=== PATIENT | female | born 1945 | race Caucasian/White ===

== ENCOUNTER 2025-03-18 17:48 | Emergency (ER) | payer MEDICARE, OTHER, SELFPAY ==
[2025-03-18 18:03] VITALS: BP 117/92
[2025-03-18 18:22] VITALS: BMI 24.2
--- NOTE | 2025-03-18 20:43 | ED.GENMED ---
History of Present Illness
General
Chief Complaint: Fall
Source: patient
Time Seen by Provider: 03/18/25 19:23
History of Present Illness
History of Present Illness:
Psychiatric sign NC 79-year-old female with past medical history of bronchiectasis, IBS and anxiety presenting to the emergency department for evaluation after she accidentally increased the speed too much on the treadmill and prior to being able to
slow the treadmill down or get off the treadmill she fell down onto the moving treadmill. Patient sustained abrasion to her chin, bilateral knee, bilateral forearm and states she bit the inner aspect of her lower lip. Patient unsure of her last
tetanus. she denies any headache, visual changes, loss consciousness, use of anticoagulants. No other injury sustained. Patient currently stating her right knee is what is bothering her the most and notes some mild soft tissue swelling
Past History
Past History
ED Past Medical History: Psychiatric (anxiety), Other (Bronchiectasis) and Other (IBS)
ED Past Surgical History: Orthopedic (Knee replacement surgery)
Social History
Tobacco: Former smoker
Alcohol: None
Drug: None
Personal:
Living: with family
Review of Systems
Review of Systems
All Other Systems: ROS reviewed and negative except as documented in HPI and ROS
Phy Exam
Physical Exam
Physical Exam:
GENERAL: Alert , in no apparent distress
HEAD: abrasion/contusion to chin
EYE: Clear conjunctiva
NECK: Supple, no midline tenderness
ENT: o/p clr, mmm.
NEUROLOGICAL: Alert and oriented, no focal neuro deficits
SKIN: Warm and dry, superficial abrasions to the chin, bilateral forearms, bilateral knees and left lower leg
MUSCULOSKELETAL: No edema, well perfused. Right knee: Mild soft tissue swelling but patient allows for full active and passive range of motion. Tenderness over the patella
PSYCH: Normal and appropriate interaction.
Scores
Heart Failure Risk
Heart Failure Risk Score: Not Applicable
Heart Score for Chest Pain Patients
STEMI patient?: Not applicable
Withdrawal Assessment of Alcohol
Withdrawal Assessment Completed?: Not applicable
Course
Orders/Labs/Results
Orders:
Orders
03/18/25 20:27
CR Knee- Right 4 Or More View* Urgent
Comment:
Reason For Exam: pain, fall, edema
03/18/25 20:45
Tetanus/Diphth/Acelpertussis [Adacel] 0.5 ml IM .ONCE ONE
Vital Signs
Initial and Last Documented VS:
Initial Vital Signs
Temp Pulse Resp BP Pulse Ox
98.3 F 70 16 117/92 98
03/18/25 18:03 03/18/25 18:03 03/18/25 18:03 03/18/25 18:03 03/18/25 18:03
Last Documented Vital Signs
Temp Pulse Resp BP Pulse Ox
98.3 F 70 16 117/92 98
03/18/25 18:03 03/18/25 18:03 03/18/25 18:03 03/18/25 18:03 03/18/25 18:03
MDM/Problems Addressed
Differential Diagnosis Includes:
Superficial abrasion/contusion, minimal concern for fracture or ligamentous/meniscal injury
MDM/Problems Addressed:
79-year-old female presenting the ER for evaluation after she had neck central fall on a treadmill when she excellently set the treadmill speed too fast. Multiple superficial abrasions/contusions noted. Patient's main concern is her right knee.
Will obtain x-ray however I suspect soft tissue contusion/potential small joint effusion likely. Patient declining anything further for pain at this time. Ice and elevation and continued NSAIDs/Tylenol as needed for pain. Anticipate discharge
home.
*Radiology
Radiology exam reviewed: preliminary read by ED provider (Soft tissue swelling, no fracture or hardware fracture)
*Pulse Oximetry
Patient hypoxic: no
*Critical Care Note
Total Time (30-74mins, 75-104mins- exclusive of procedures): Not Applicable
Patient Management
Escalation/DeEscalation of care consider admission/obs:
X-ray unremarkable. Patient feels comfortable being discharged home. NSAIDs/Tylenol as needed for pain. She is otherwise stable for discharge home.
ED Attending Note
-
Portions of this chart may have been created with voice recognition software.� Occasional wrong word or��sound alike� substitutions may have occurred due to the inherent limitations of voice recognition software.
Discharge Plan
Departure
Patient Disposition: Home (Routine Discharge)
Date of Disposition: 03/18/25
Time of Disposition: 21:02
Patient with high blood pressure during this ER visit?: No
Discharge Problem:
Accidental fall, Chin contusion, Abrasions of multiple sites
Instructions: Skin Abrasions (DC)
Prescriptions:
No Action
meloxicam 7.5 MG tablet
7.5 mg PO QPM
escitalopram oxalate 10 MG tablet
10 mg PO HS
fluticasone furoate-vilanterol [Breo Ellipta] 1 EACH blister with device
1 puff inhalation R DAILY
ammonium lactate 1 APPLIC lotion
1 applic TP DAILY
calcium carbonate [Oyster Shell Calcium 500] 500 MG tablet
500 mg PO BID
Patient Comments:
pt states that she thinks she takes 600 mg q BID
ascorbic acid (vitamin C) [Vitamin C] 500 MG tablet
500 mg PO DAILY
phytonadione (vitamin K1) 100 MCG tablet
100 mcg PO DAILY
biotin 500 MCG capsule
500 mcg PO DAILY
cyclosporine [Restasis] 10 DROPS dropperette
0.4 ml BOTH EYES BID
zinc gluconate 60 MG tablet
60 mg PO DAILY
cholecalciferol (vitamin D3) 1,000 UNITS tablet
1,000 units PO DAILY
alpha lipoic acid 100 MG capsule
100 mg PO DAILY
[id number] serr [Osteo Bi-Flex (5-Loxin)] 1 EACH tablet
1 tab PO DAILY
guaifenesin [Mucus Relief ER] 600 MG tablet extended release 12hr
600 mg PO BIDPRN PRN (Reason: cough)
ciprofloxacin HCl [Cipro] 500 MG tablet
500 mg PO BID Qty: 14 0RF
Referrals:
Tanisha Carolina MD [Family Provider] -
Interventions
Interventions:
*Risk Screen - Suicide Last Done: 03/18/25 18:03
*General Assessment Last Done: 03/18/25 18:03
*Neglect/Abuse Screening Last Done: 03/18/25 18:22
*ED COVID-19 Vaccine History Last Done: 03/18/25 18:03
*Nursing Disposition Last Done: 03/18/25 21:16
ED-Musculoskeletal Assessment Last Done: 03/18/25 18:22
ED- Neurological Assessment Last Done: 03/18/25 18:22
ED-Skin Assessment Last Done: 03/18/25 18:22
Discharge Date and Time
Discharge Date/Time: 03/18/25 21:17
Print Language: CYMRO
[2025-03-18] MEDS: ADACEL 0.5 ML IM (21:15)
== END 2025-03-18 21:17 | disposition home or self-care (01) ==
LOC: EMR 17:48
PROVIDERS: EMERGENCY PHYSICIAN Emergency Medicine; FAMILY PHYSICIAN Internal Medicine
DX: S80.01XA Contusion of right knee, initial encounter (principal); S00.83XA Contusion of other part of head, initial encounter; S00.81XA Abrasion of other part of head, initial encounter; S50.812A Abrasion of left forearm, initial encounter; S50.811A Abrasion of right forearm, initial encounter; S80.212A Abrasion, left knee, initial encounter; S80.211A Abrasion, right knee, initial encounter; S80.812A Abrasion, left lower leg, initial encounter; W17.89XA Other fall from one level to another, initial encounter; Y93.A1 Activity, exercise machines primarily for cardiorespiratory conditioning; Z87.891 Personal history of nicotine dependence; Z23 Encounter for immunization
CPT/HCPCS: 90471; 99283; 73564; 90715

== ENCOUNTER 2025-05-05 18:07 | Emergency (ER) | payer MEDICARE, OTHER, SELFPAY ==
[2025-05-05 18:08] VITALS: BP 141/92
[2025-05-05 18:30] LABS: % Basophils 0.4 % (0-2); % Eosinophils 0.6 % (0-6); % Immature Granulocytes 0.1 % (0-0.5); % Lymphocytes 18.9 % (20.5-51.1); % Monocytes 8.9 % (1.7-9.3); % Neutrophils 71.1 % (42.2-75.2); Absolute Eosinophils 0.1 10^3/uL (0-0.7); Absolute Lymphocytes 1.7 10^3/uL (1.2-3.4); Absolute Monocytes 0.8 10^3/uL (0.1-0.6); Absolute Neutrophils 6.4 10^3/uL (1.4-6.5); Hematocrit 44.6 % (37.0-47.0); Hemoglobin 15.5 g/dL (12.0-16.0); Mean Corp Hgb Conc. 34.8 g/dL (33.0-37.0); Mean Corpuscular Hgb 33.1 pg (27.0-31.0); Mean Corpuscular Volume 95.3 fL (81.0-99.0); Mean Platelet Volume 11.8 fL (7.4-10.4); Nucleated Red Blood Cells % 0 %; Platelet Count 154 10^3/uL (130-400); Red Blood Cell Count 4.68 10^6/uL (4.20-5.40); Red Cell Dist. Width 14.5 % (11.5-14.5)
[2025-05-05 18:44] LABS: COVID-19 Antigen Negative (Negative)
[2025-05-05 18:47] LABS: ALT (SGPT) 32 U/L (0-35); AST (SGOT) 44 U/L (14-36); Albumin 4.4 g/dl (3.5-5.0); Alkaline Phosphatase 60 U/L (38-126); Blood Urea Nitrogen 17 mg/dl (7-17); Calcium 9.1 mg/dl (8.4-10.2); Carbon Dioxide 27 mmol/L (22-30); Chloride 102 mmol/L (98-107); Glucose 127 mg/dl (70-99); Potassium 4.7 mmol/L (3.5-5.1); Sodium 135 mmol/L (135-145); Total Bilirubin 0.6 mg/dl (0.2-1.3); Total Protein 7.7 g/dl (6.3-8.2); eGFR > 60.00
[2025-05-05 21:57] VITALS: BP 152/68
[2025-05-05 22:00] VITALS: BP 126/79
[2025-05-05 22:02] VITALS: BMI 25.5
[2025-05-05 23:00] VITALS: BP 149/72
--- NOTE | 2025-05-05 23:23 | ED.GENMED ---
History of Present Illness
General
Chief Complaint: Cold/Flu/URI Symptoms
Source: patient
Exam Limitations: none
Time Seen by Provider: 05/05/25 22:21
Nursing documentation reviewed up to this point in time: agreed with
History of Present Illness
History of Present Illness:
Patient with history of bronchiectasis, presents to ED secondary to worsening cough over the past 3 weeks. Denies fever or chills. Denies chest pain or shortness of breath. Denies nausea, vomiting, or diarrhea. Denies inability to sleep. Denies
loss of appetite. Patient has had number of similar symptoms in the past, often treated with antibiotics. Denies recent travel or surgery. Denies back pain. Denies leg pain or swelling. Denies previous history of blood clots.
Past History
Past History
ED Past Medical History: Psychiatric (anxiety), Other (Bronchiectasis) and Other (IBS)
ED Past Surgical History: Orthopedic (Knee replacement surgery)
Social History
Tobacco: Former smoker
Alcohol: None
Drug: None
Personal:
Living: with family
Review of Systems
Review of Systems
Allergies reviewed?: Yes
All Other Systems: ROS reviewed and negative except as documented in HPI and ROS
Constitutional: Reports no symptoms; Denies fever
Respiratory: Reports cough and trouble breathing
Cardiac: Reports no symptoms
ABD/GI: Reports no symptoms
Musculoskeletal: Reports no symptoms; Denies edema
Skin: Reports no symptoms
Neurological: Reports no symptoms
Phy Exam
Physical Exam
Physical Exam:
Physical Exam
General: no apparent distress, not acutely ill. afebrile
Head: nc/at. eomi
Neck: supple. no meningeal signs.
Heart: s1/s2 regular rate and rhythm
Lungs: no acute respiratory distress. rhonchi bilaterally
Abdomen: normal bowel sounds. not tender.
Neuro: alert and oriented x 3. no focal neurological deficits
Skin: no rash
Psychiatric: well kept. interactive and cooperative
Extremities: no edema. no calf tenderness.
Course
Orders/Labs/Results
Orders:
Orders
05/05/25 18:16
COVID-19 Antigen Urgent
Source: Nasal Swab
Complete Blood Count/With Diff Urgent
Comprehensive Metabolic Panel Urgent
Influenza A+B Rapid Molecular Urgent
[facility] Source: Nasal Swab
Specimen Description:
05/05/25 22:02
CR Chest - 2 Views Urgent
Comment:
Reason For Exam: cough, fever
05/05/25 23:22
Azithromycin [Zithromax] 500 mg PO NOW STA
Abnormal Lab Results
05/05/25
18:16
MCH 33.1 H pg
(27.0-31.0)
MPV 11.8 H fL
(7.4-10.4)
Absolute Monos (auto) 0.8 H 10^3/uL
(0.1-0.6)
Lymphocytes % 18.9 L %
(20.5-51.1)
Glucose 127 H mg/dl
(70-99)
AST 44 H U/L
(14-36)
05/05/25 18:16
05/05/25 18:16
Vital Signs
Initial and Last Documented VS:
Initial Vital Signs
Temp Pulse Resp BP Pulse Ox
98.6 F 89 20 141/92 98
05/05/25 18:08 05/05/25 18:08 05/05/25 18:08 05/05/25 18:08 05/05/25 18:08
Last Documented Vital Signs
Temp Pulse Resp BP Pulse Ox
98.3 F 74 24 149/72 95
05/05/25 23:46 05/05/25 22:15 05/05/25 21:57 05/05/25 23:00 05/05/25 23:15
MDM/Problems Addressed
MDM/Problems Addressed:
Chest x-ray report reviewed and discussed with patient. In light of patient's worsening symptoms, decision made to start patient on antibiotics. Patient otherwise is afebrile, hemodynamically stable, without acute respiratory distress, nor any
evidence of dehydration, at time of discharge, to the care of her spouse. Advised to follow-up with her verification manager for reevaluation, or consider returning to ED with worsening symptoms.
*Critical Care Note
Total Time (30-74mins, 75-104mins- exclusive of procedures): Not Applicable
ED Attending Note
-
Portions of this chart may have been created with voice recognition software.� Occasional wrong word or��sound alike� substitutions may have occurred due to the inherent limitations of voice recognition software.
Discharge Plan
Departure
Patient Disposition: Home (Routine Discharge)
Date of Disposition: 05/05/25
Time of Disposition: 23:23
Patient with high blood pressure during this ER visit?: Yes
Condition: Fair
Discharge Problem:
Pneumonia
Instructions: Pneumonia in adults - Discharge instructions
Prescriptions:
New
azithromycin [Zithromax] 250 mg tablet
250 mg PO DAILY 4 Days Qty: 4 0RF
No Action
meloxicam 7.5 MG tablet
7.5 mg PO QPM
escitalopram oxalate 10 MG tablet
10 mg PO HS
fluticasone furoate-vilanterol [Breo Ellipta] 1 EACH blister with device
1 puff inhalation R DAILY
ammonium lactate 1 APPLIC lotion
1 applic TP DAILY
calcium carbonate [Oyster Shell Calcium 500] 500 MG tablet
500 mg PO BID
Patient Comments:
pt states that she thinks she takes 600 mg q BID
ascorbic acid (vitamin C) [Vitamin C] 500 MG tablet
500 mg PO DAILY
phytonadione (vitamin K1) 100 MCG tablet
100 mcg PO DAILY
biotin 500 MCG capsule
500 mcg PO DAILY
cyclosporine [Restasis] 10 DROPS dropperette
0.4 ml BOTH EYES BID
zinc gluconate 60 MG tablet
60 mg PO DAILY
cholecalciferol (vitamin D3) 1,000 UNITS tablet
1,000 units PO DAILY
alpha lipoic acid 100 MG capsule
100 mg PO DAILY
[id number]-[id number] serr [Osteo Bi-Flex (5-Loxin)] 1 EACH tablet
1 tab PO DAILY
guaifenesin [Mucus Relief ER] 600 MG tablet extended release 12hr
600 mg PO BIDPRN PRN (Reason: cough)
ciprofloxacin HCl [Cipro] 500 MG tablet
500 mg PO BID Qty: 14 0RF
Activity Restrictions/Additional Instructions:
As discussed, please follow up with your verification manager for further evaluation and treatment. [facility] pharmacy in [place].
Interventions
Interventions:
*Risk Screen - Suicide Last Done: 05/05/25 18:08
*General Assessment Last Done: 05/05/25 18:08
*Neglect/Abuse Screening Last Done: 05/05/25 18:08
*ED- Fall Risk Assessment Last Done: 05/05/25 23:46
*ED COVID-19 Vaccine History Last Done: 05/05/25 23:46
*Nursing Disposition Last Done: 05/05/25 23:46
ED- Pulmonary Assessment Last Done: 05/05/25 22:03
Discharge Date and Time
Discharge Date/Time: 05/05/25 23:48
Print Language: CHINESE
[2025-05-05] MEDS: ZITHROMAX 500 MG PO (23:29)
== END 2025-05-05 23:48 | disposition home or self-care (01) ==
LOC: EMR 18:07
PROVIDERS: Emergency Medicine; EMERGENCY PHYSICIAN Emergency Medicine
DX: J18.9 Pneumonia, unspecified organism (principal); Z87.891 Personal history of nicotine dependence
CPT/HCPCS: 99284; 71046; 80053; 85025; 87502; 87811